=== PATIENT | female | born 1945 | race Caucasian/White ===

== ENCOUNTER 2018-10-29 18:22 | Emergency (ER) | payer MEDICARE ==
[2018-10-29 18:42] VITALS: BP 162/86
--- NOTE | 2018-10-29 19:02 | UC ---
Bite Injury/Animal HPI - HPI Summary HPI Summary: 73-year-old woman comes in with a chief complaint of tick bite on the anterior chest just over the left clavicle. She has to take and pulled on it and got most of it had probably still in there. She did that today. Probably get the tick in there yesterday. No fevers no chills. The area around tick bite is slightly erythematous. Feels well otherwise. - History of Current Complaint Chief Complaint: UCSkin Stated Complaint: TICK BITE Time Seen by Provider: 10/29/18 18:35 Pain Intensity: 2 - Allergies/Home Medications Allergies/Adverse Reactions: Allergies Allergy/AdvReac Type Severity Reaction Status Date / Time diltiazem Allergy Nausea And Verified 10/29/18 18:43 Vomiting Penicillins Allergy Hives Verified 10/29/18 18:43 CT SCAN DYE Allergy Hives Uncoded 01/05/16 08:29 Home Medications: Home Medications Apixaban* [Eliquis*] 5 mg PO DAILY 10/29/18 [History Confirmed 10/29/18] Calcium Carbonate [Calcium] 750 mg PO DAILY 10/29/18 [History Confirmed 10/29/18 ] Dofetilide CAP* [Tikosyn CAP*] 500 mcg PO DAILY 10/29/18 [History Confirmed 04/10] Lisinopril 40 mg PO QAM 10/29/18 [History Confirmed 10/29/18] PMH/Surg Hx/FS Hx/Imm Hx Previously Healthy: Yes Endocrine History: Hypothyroidism Cardiovascular History: Hypertension, Atrial Fibrillation - Surgical History Surgical History: Yes Surgery Procedure, Year, and Place: PACEMAKER PLACEMENT- [facility]. 3 CARDIAC ABLATIONS- [facility]. UPPER AND LOWER ENDOSCOPIES-[facility] - Family History Known Family History: Positive: Non-Contributory - Social History Alcohol Use: Occasionally Substance Use Type: None Smoking Status (MU): Never Smoked Tobacco Review of Systems All Other Systems Reviewed And Are Negative: Yes Constitutional: Positive: Negative Skin: Positive: Other - SEE HPI Eyes: Positive: Negative ENT: Positive: Negative Respiratory: Positive: Negative Cardiovascular: Positive: Negative Gastrointestinal: Positive: Negative Motor: Positive: Negative Neurovascular: Positive: Negative Musculoskeletal: Positive: Negative Neurological: Positive: Negative Psychological: Positive: Negative Is Patient Immunocompromised?: No Physical Exam Triage Information Reviewed: Yes Appearance: Well-Appearing, No Pain Distress, Well-Nourished Vital Signs: Initial Vital Signs Temp 98.4 F 10/29/18 18:36 Pulse 100 10/29/18 18:36 Resp 16 10/29/18 18:36 BP 162/86 10/29/18 18:36 Pulse Ox 97 10/29/18 18:36 Vital Signs Reviewed: Yes Eye Exam: Normal Eyes: Positive: Conjunctiva Clear Neck exam: Normal Neck: Positive: Supple Respiratory: Positive: No respiratory distress Musculoskeletal Exam: Normal Musculoskeletal: Positive: Strength Intact, ROM Intact Neurological: Positive: Alert Psychological: Positive: Age Appropriate Behavior Skin: Positive: Other - LEFT ANTERIOR CHEST OVER THE CLAVICE, 1-2MM DARK FB IMBEDDED IN SKIN. MILD BLANCHING ERYTHEMA 1CM AROUNG THE FB. NO BULLS EYE RASH. Bite Injury Course/Dx - Course Course Of Treatment: DISCUSSED TO GET RECHECKED FOR MODULAR SET CREW MEMBER ABX IF CELLULITIS OR BULLS EYE RASH APPEARS OR IF FEEL ILL. - Differential Dx/Diagnosis Provider Diagnosis: Tick bite of chest wall Discharge - Sign-Out/Discharge Documenting (check all that apply): Patient Departure All imaging exams completed and their final reports reviewed: No Studies - Discharge Plan Condition: Stable Disposition: HOME Prescriptions: DOXYcycline CAP(*) [DOXYcycline 100MG CAP(*)] 200 mg PO ONCE #2 cap Patient Education Materials: Tick Bite (ED) Referrals: Amber Vernon MD [Primary Care Provider] - Additional Instructions: FOLLOW UP WITH YOUR DOCTOR IF NOT COMPLETELY IMPROVED. GET REEVALUATED SOONER FOR ANY WORSENING OF YOUR CONDITION; RASH, FEVER, YOU FEEL ILL OR ANY QUESTIONS OR CONCERNS. - Billing Disposition and Condition Condition: STABLE Disposition: Home
== END 2018-10-29 19:05 | disposition home or self-care (01) ==
LOC: UCEAST 18:22
DX: T63.481A Toxic effect of venom of other arthropod, accidental (unintentional), initial encounter (principal); Y92.9 Unspecified place or not applicable; I10 Essential (primary) hypertension; I48.91 Unspecified atrial fibrillation
CPT/HCPCS: 99212; G0463

== ENCOUNTER 2019-01-05 09:03 | Observation (INO) | payer MEDICARE ==
[2019-01-05] MEDS ORDERED: NS 0.9% 1000 ML** 1,000 ML IV ONE (09:13)
[2019-01-05 09:43] LABS: ABS Basophils 0.1 10^3/ul (0-0.2); ABS Eosinophils 0.1 10^3/ul (0-0.6); ABS Lymphocytes 1.5 10^3/ul (1.0-4.8); ABS Monocytes 0.7 10^3/ul (0-0.8); ABS Neutrophils 5.7 10^3/ul (1.5-7.7); Eosinophil % 1.6 %; Hematocrit 36 % (35-47); Hemoglobin 11.6 g/dL (12.0-16.0); Lymphocyte % 18.2 %; Mean Corpuscular HGB Conc 32 g/dL (31-36); Mean Corpuscular Hemoglobin 27 pg (27-31); Mean Corpuscular Volume 84 fL (80-97); Mean Platelet Volume 7.5 fL (7.4-10.4); Platelet Count 293 10^3/uL (150-450); Red Blood Count 4.32 10^6 /uL (3.70-4.87); Red Cell Distribution Width 14 % (10-15); White Blood Count 8.1 10^3/uL (3.5-10.8)
[2019-01-05 09:51] LABS: INR 1.91 (0.82-1.09)
[2019-01-05 10:01] LABS: Albumin 4.3 g/dL (3.2-5.2); Albumin/Globulin Ratio 1.3 (1-3); BUN/Creatinine Ratio 21.4 (8-20); C Reactive Protein 2.48 mg/L (<8.01); Calcium 9.8 mg/dL (8.6-10.3); EGFR Non-African American 66.1 (>60); Globulin 3.2 g/dL (2-4); Potassium 3.9 mmol/L (3.5-5.0); Total Bilirubin 0.7 mg/dL (0.2-1.0); Total Protein 7.5 g/dL (6.4-8.9)
[2019-01-05] MEDS: Esmolol* 10 MG/ML 10 ML (100 mg) IV SCH ×2 (11:20→11:33)
[2019-01-05] MEDS ORDERED: Metoprolol Tartrate IV* 1 MG/ML 5 ML VIAL IV ONE ×3 (12:29→16:00)
[2019-01-05 12:54] LABS: Magnesium 1.8 mg/dL (1.9-2.7)
[2019-01-05 13:10] LABS: TSH (Thyroid Stimulating Horm) 5.41 mcIU/mL (0.34-5.60)
--- NOTE | 2019-01-05 13:18 | ED ---
HPI Cardiac - HPI Summary HPI Summary: She was 73-year-old female with history of A. fib and hypertension. Currently is a patient of Dr. Tucker at [place], [place]. Patient states she has been SOB x 2 weeks. Denies fevers, sweats or chills. Denies abd pain, n/v/c/d. Denies edema or other swelling. No hx of CHF. No hx of asthma/COPD. patient states she has been in A. fib chronically for several months, despite medications and 5 open lesions. She states "I refused to have any more of ablations." States she has an appt with Dr. Tucker on Sunday (in 2 days) to have her pacemaker "take over." She states she typically runs between 90-110 HR , but over the past 2 weeks, her HR rate has been increased (<130's) consistently getting worse. With this, her SOB has worsened. Not worse or better at night or with ambulation. Denies cough. She states she has N/V with diltiazem and verapamil and is refusing to try these again as she had severe N/ V. She also states she has had side effects with digoxin and Tikosyn. Currently taking Toprol 50mg, amlodipine and lisinopril. - History of Current Complaint Chief Complaint: EDShortnessOfBreath Stated Complaint: I CANT BREATH PER PT Time Seen by Provider: 01/05/19 09:13 Hx Obtained From: Patient Onset/Duration: Started Hours Ago Timing: Constant Initial Severity: Moderate Current Severity: Moderate Pain Intensity: 2 Pain Scale Used: 0-10 Numeric Chest Pain Radiates: No Aggravating Factor(s): Nothing Alleviating Factor(s): Nothing Associated Signs and Symptoms: Positive: Negative. Negative: Chest Pain, Vision Changes, Anxiety, Recent Stress, Headaches, Lightheadedness, Palpitations , Productive Cough, Nonproductive Cough, Calf Pain/Swelling - Risk Factors Cardiac Risk Factors: Hypertension Atrial Fibrillation Risk Factors: Hypertension, Coronary Artery Disease TAD Risk Factors: Negative - Allergy/Home Medications Allergies/Adverse Reactions: Allergies Allergy/AdvReac Type Severity Reaction Status Date / Time diltiazem Allergy Nausea And Verified 01/05/19 09:39 Vomiting Iodinated Contrast- Oral and Allergy Hives Verified 01/05/19 16:10 IV Dye Penicillins Allergy Hives Verified 01/05/19 09:39 PMH/Surg Hx/FS Hx/Imm Hx Previously Healthy: Yes Endocrine/Hematology History: Reports: Hx Thyroid Disease - HYPOTHYROID Cardiovascular History: Reports: Hx Hypertension - ON MEDICATION FOR, Hx Pacemaker/ICD, Other Cardiovascular Problems/Disorders - ATRIAL FIBRILLATION GI History: Reports: Hx Gastroesophageal Reflux Disease, Hx Ulcer - HISTORY OF Musculoskeletal History: Reports: Hx Arthritis - LEFT HIP AND FINGERS Sensory History: Reports: Hx Cataracts - BILATERAL, Hx Contacts or Glasses - GLASSES Denies: Hx Hearing Aid Opthamlomology History: Reports: Hx Cataracts - BILATERAL, Hx Contacts or Glasses - GLASSES - Surgical History Surgery Procedure, Year, and Place: PACEMAKER PLACEMENT- [facility]. 3 CARDIAC ABLATIONS- [facility]. UPPER AND LOWER ENDOSCOPIES-[facility] Hx Anesthesia Reactions: No Infectious Disease History: No Infectious Disease History: Denies: Traveled Outside the [place] in Last 30 Days - Family History Known Family History: Positive: Non-Contributory - Social History Occupation: Unemployed Lives: With Family Alcohol Use: None Hx Substance Use: No Substance Use Type: Reports: None Smoking Status (MU): Never Smoked Tobacco Review of Systems Constitutional: Negative Negative: Fever, Chills, Fatigue, Skin Diaphoresis Negative: Palpitations, Chest Pain Positive: Shortness Of Breath. Negative: Cough Negative: Abdominal Pain, Vomiting, Diarrhea, Nausea Genitourinary: Negative Positive: no symptoms reported, see HPI Negative: Arthralgia, Myalgia All Other Systems Reviewed And Are Negative: Yes Physical Exam Triage Information Reviewed: Yes Vital Signs On Initial Exam: Initial Vitals Temp Pulse Resp BP Pulse Ox 97.6 F 137 20 136/91 95 01/05/19 09:06 01/05/19 09:06 01/05/19 09:06 01/05/19 09:06 01/05/19 09:06 Vital Signs Reviewed: Yes Appearance: Positive: Well-Appearing, Well-Nourished Skin: Positive: Warm, Skin Color Reflects Adequate Perfusion Head/Face: Positive: Normal Head/Face Inspection Eyes: Positive: EOMI, Conjunctiva Clear Neck: Positive: Supple, No Lymphadenopathy Respiratory/Lung Sounds: Positive: Clear to Auscultation, Breath Sounds Present Cardiovascular: Positive: IRR - rapid RVR with rate of >130's Musculoskeletal: Positive: Normal, Strength/ROM Intact Neurological: Positive: Sensory/Motor Intact, Alert, Oriented to Person Place, Time, Speech Normal Psychiatric: Positive: Affect/Mood Appropriate AVPU Assessment: Alert - [place] Coma Scale Best Eye Response: 4 - Spontaneous Best Motor Response: 6 - Obeys Commands Best Verbal Response: 5 - Oriented Coma Scale Total: 15 Diagnostics - Vital Signs Vital Signs Temp Pulse Resp BP Pulse Ox 01/05/19 12:08 123 26 119/79 91 01/05/19 12:00 126 20 92 01/05/19 11:57 127 22 134/88 91 01/05/19 11:47 123 15 124/100 97 01/05/19 11:36 135 18 142/100 88 01/05/19 11:34 128 29 130/94 93 01/05/19 11:32 132 25 135/100 93 01/05/19 11:28 125 27 108/85 93 01/05/19 11:27 128 21 125/100 94 01/05/19 11:24 119 28 132/98 92 01/05/19 11:23 133 24 132/97 92 01/05/19 11:21 135 27 137/104 93 01/05/19 11:17 128 15 138/93 93 01/05/19 11:00 129 26 92 01/05/19 10:47 125 25 122/89 91 01/05/19 10:17 127 26 116/89 95 01/05/19 10:00 27 01/05/19 09:47 122 28 123/97 91 01/05/19 09:30 142 146/118 94 01/05/19 09:17 128 134/96 93 01/05/19 09:16 142 96 01/05/19 09:06 97.6 F 137 20 136/91 95 - Laboratory Lab Results: Lab Results 01/05/19 01/05/19 01/05/19 Range/Units 09:20 09:24 09:24 WBC 8.1 (3.5-10.8) 10^3/uL RBC 4.32 (3.70-4.87) 10^6 /uL Hgb 11.6 L (12.0-16.0) g/dL Hct 36 (35-47) % MCV 84 (80-97) fL MCH 27 (27-31) pg MCHC 32 (31-36) g/dL RDW 14 (10-15) % Plt Count 293 (150-450) 10^3/uL MPV 7.5 (7.4-10.4) fL Neut % (Auto) 70.6 % Lymph % (Auto) 18.2 % [place] % (Auto) 8.4 % Eos % (Auto) 1.6 % Baso % (Auto) 1.2 % Absolute Neuts (auto) 5.7 (1.5-7.7) 10^3/ul Absolute Lymphs (auto) 1.5 (1.0-4.8) 10^3/ul Absolute Monos (auto) 0.7 (0-0.8) 10^3/ul Absolute Eos (auto) 0.1 (0-0.6) 10^3/ul Absolute Basos (auto) 0.1 (0-0.2) 10^3/ul Absolute Nucleated RBC 0.0 10^3/ul Nucleated RBC % 0.0 INR (Anticoag Therapy) 1.91 H (0.82-1.09) D-Dimer, Quantitative 687 H (Less Than 230) ng/mL Sodium (135-145) mmol/L Potassium (3.5-5.0) mmol/L Chloride (101-111) mmol/L Carbon Dioxide (22-32) mmol/L Anion Gap (2-11) mmol/L BUN (6-24) mg/dL Creatinine (0.51-0.95) mg/dL Est GFR ( Amer) (>60) Est GFR (Non-Af Amer) (>60) BUN/Creatinine Ratio (8-20) Glucose (70-100) mg/dL Lactic Acid (0.5-2.0) mmol/L Calcium (8.6-10.3) mg/dL Magnesium (1.9-2.7) mg/dL Total Bilirubin (0.2-1.0) mg/dL AST (13-39) U/L ALT (7-52) U/L Alkaline Phosphatase (34-104) U/L Total Creatine Kinase (10-223) U/L Troponin I (<0.04) ng/mL C-Reactive Protein (<8.01) mg/L B-Natriuretic Peptide 250 H (<=100) pg/mL Total Protein (6.4-8.9) g/dL Albumin (3.2-5.2) g/dL Globulin (2-4) g/dL Albumin/Globulin Ratio (1-3) TSH (0.34-5.60) mcIU/mL 01/05/19 01/05/19 Range/Units 09:24 09:24 WBC (3.5-10.8) 10^3/uL RBC (3.70-4.87) 10^6 /uL Hgb (12.0-16.0) g/dL Hct (35-47) % MCV (80-97) fL MCH (27-31) pg MCHC (31-36) g/dL RDW (10-15) % Plt Count (150-450) 10^3/uL MPV (7.4-10.4) fL Neut % (Auto) % Lymph % (Auto) % [place] % (Auto) % Eos % (Auto) % Baso % (Auto) % Absolute Neuts (auto) (1.5-7.7) 10^3/ul Absolute Lymphs (auto) (1.0-4.8) 10^3/ul Absolute Monos (auto) (0-0.8) 10^3/ul Absolute Eos (auto) (0-0.6) 10^3/ul Absolute Basos (auto) (0-0.2) 10^3/ul Absolute Nucleated RBC 10^3/ul Nucleated RBC % INR (Anticoag Therapy) (0.82-1.09) D-Dimer, Quantitative (Less Than 230) ng/mL Sodium 137 (135-145) mmol/L Potassium 3.9 (3.5-5.0) mmol/L Chloride 103 (101-111) mmol/L Carbon Dioxide 24 (22-32) mmol/L Anion Gap 10 (2-11) mmol/L BUN 18 (6-24) mg/dL Creatinine 0.84 (0.51-0.95) mg/dL Est GFR ( Amer) 80.0 (>60) Est GFR (Non-Af Amer) 66.1 (>60) BUN/Creatinine Ratio 21.4 H (8-20) Glucose 102 H (70-100) mg/dL Lactic Acid 1.7 (0.5-2.0) mmol/L Calcium 9.8 (8.6-10.3) mg/dL Magnesium 1.8 L (1.9-2.7) mg/dL Total Bilirubin 0.70 (0.2-1.0) mg/dL AST 23 (13-39) U/L ALT 20 (7-52) U/L Alkaline Phosphatase 58 (34-104) U/L Total Creatine Kinase 41 (10-223) U/L Troponin I 0.00 (<0.04) ng/mL C-Reactive Protein 2.48 (<8.01) mg/L B-Natriuretic Peptide (<=100) pg/mL Total Protein 7.5 (6.4-8.9) g/dL Albumin 4.3 (3.2-5.2) g/dL Globulin 3.2 (2-4) g/dL Albumin/Globulin Ratio 1.3 (1-3) TSH 5.41 (0.34-5.60) mcIU/mL Result Diagrams: 01/05/19 09:24 01/05/19 09:24 Lab Statement: Any lab studies that have been ordered have been reviewed, and results considered in the medical decision making process. Disposition - Course Course Of Treatment: During this course of treatment, the patient is evaluated for shortness of breath which is been worsening over the past 2 weeks. She denies any cough or cough production. Denies any fevers, sweats, chills. Denies any abdominal pain, nausea, vomiting, diarrhea. She denies any edema to the lower extremities. She states she has had normal blood pressures, however has been in A. fib with rapid response of over 130s. She states this is been worsening over the past several days as well as her shortness of breath has been worsening. She states she is currently on Toprol 50 mg and is scheduled to have her pacemaker take over on Sunday, 2 days from today, at [facility]. History of 5 ablations. Patient has a normal white count and an INR of 1.91. D-dimer is 687, however an age adjusted d-dimer is 750 for her age, which shows VTE unlikely d/t cut-off. Likely SOB related to rapid response. However, CXR shows atelectasis vs. PNA. She is already on BB. She is allergic to verapamil and Cardizem. Discussed with Dr. Chavez who suggested Brevibloc 15mg x 2 IV push. This did not change rate. Discussed with Dr. Trent. Suggested other medications (ex. Digoxin) vs. admit for PNA which would likely be the cause of elevated HR and this should control HR. Discussed admission with Dr. Blackman. Lopressor 5mg x 2 given which also did not control the rate. Patient remains symptomatically SOB, however O2 remains stable. Patient admits at this time she has had a mild cough. non-productive. Wishes not to stay, but is willing. - Differential Dx - Cardiopulmonary Differential Diagnoses - Cardiopulmonary: Other - rapid RVR, a fib, SOB, PNA, atelectasis - Diagnoses Provider Diagnoses: Atrial fibrillation with RVR - Physician Notifications Discussed Care Of Patient With: Topher Blackman Instructed by Provider To: Admit As Inpatient - Critical Care Time Critical Care Time: 30-74 min Discharge - Sign-Out/Discharge Documenting (check all that apply): Patient Departure Patient Received Moderate/Deep Sedation with Procedure: No - Discharge Plan Condition: Fair Disposition: ADMITTED TO [facility] - Billing Disposition and Condition Condition: FAIR Disposition: Admitted to [facility]
[2019-01-05] MEDS ORDERED: Magnesium Sulfate 2 GM IV* 2 GM/50 ML BAG IVPB ONE (13:54)
[2019-01-05] MEDS ORDERED: Metoprolol Succinate XL TAB* 100 MG PO ONE (16:00)
[2019-01-05] MEDS ORDERED: Metoprolol Succinate XL TAB* 50 MG PO ONE (17:00)
[2019-01-05] MEDS ORDERED: Digoxin IV* 0.5 MG/2 ML AMP (0.25 MG/ML) IV SLOW PU ONE (17:17)
[2019-01-05] MEDS ORDERED: Acetaminophen TAB* 325 MG PO PRN (17:23)
[2019-01-05 19:17] LABS: Urine Appearance Clear; Urine Bilirubin Negative (Negative); Urine Blood Negative (Negative); Urine Color Yellow; Urine Glucose Negative (Negative); Urine Ketones Negative (Negative); Urine Nitrite Negative (Negative); Urine Protein Negative (Negative); Urine Specific Gravity 1.009 (1.010-1.030); Urine Urobilinogen Negative (Negative)
--- NOTE | 2019-01-05 20:31 | HP ---
CC: Dr. Vernon; * HISTORY AND PHYSICAL: DATE OF ADMISSION: 01/05/19 PROVIDER: Anu Kim NP PRIMARY CARE PROVIDER: Amber Vernon MD ATTENDING PHYSICIAN WHILE IN THE HOSPITAL: Topher Blackman MD * (dictated by Anu Kim NP) CHIEF COMPLAINT: 1. Tachycardia. 2. Shortness of breath. HISTORY OF PRESENT ILLNESS: Ms. Hackett is a 73-year-old female with a past medical history significant for atrial fibrillation, hypertension, diabetes, hypothyroid, GERD, anxiety, who presented to the emergency room with complaints of a cough x2 weeks, though the patient reports this is suspected related to her allergies and increased heart rate. The patient does report that she has chronic atrial fibrillation that she has been in atrial fibrillation for approximately 1 year and they have had difficulty controlling her heart rate. The patient reports approximately 1.5 months ago, her physician stopped her digoxin and Tikosyn as it was not controlling her heart rate. After that, the patient reports that her heart rate started to increase and she reports for approximately the past week, her heart rate has been anywhere from one teens to 126. She does report that she has had increased fatigue and increased shortness of breath x1 week. The patient reports that normally with her atrial fibrillation, her heart rate is normally in the 90s, but will range from 70s to 100s. Due to her increased shortness of breath, the patient reported to the emergency department for further evaluation. The patient reports that in March 2018, she had a cardiac catheterization at that time that was reported to have no blockages. She also reports that she has an appointment with her computer forensic specialist on Sunday and at that time she is going to be evaluated due to her uncontrolled atrial fibrillation, have her pacemaker adjusted to control her heart rate. While in the emergency room, the patient had routine lab work drawn. She was given Lopressor 5 mg IV x3. She was given Lopressor 100 mg p.o. She was given 15 mg esmolol x2 for a total dose of 30 mg with no significant change in her heart rate. Due to her atrial fibrillation with RVR and complaints of shortness of breath, we were asked to see and evaluate her for admission. The patient denies any fevers, chills, unintended weight loss. Denies any chest pain or edema. Denies any cough, hemoptysis. She does report increased shortness of breath x1 week. She denies any nausea, vomiting, diarrhea, abdominal pain, hematuria, dysuria. She denies any focal weakness or sensory loss. Denies any visual complaints, dysphagia, arthralgias, myalgias, rashes, lesions, or open sores. She denies any psychosis or anxiety. Due to her increased heart rate, atrial fibrillation, and shortness of breath, we were asked to see and evaluate her for admission. PAST MEDICAL HISTORY: Significant for: 1. Atrial fibrillation. 2. Hypertension. 3. Diabetes. 4. Hypothyroid. 5. GERD. 6. Anxiety. 7. Hypercholesterolemia. 8. Pacemaker placement. PAST SURGICAL HISTORY: 1. Hysterectomy. 2. Pacemaker implantation in 2009. 3. Polyps removed. 4. Radiofrequency ablation in 2008. 5. Pulmonary vein ablation in 2008. 6. Left cataract with lens implant. FAMILY HISTORY: Mother and father were both with a history of hypertension. Mother from a cerebral aneurysm. Father from an [place]. Brother from an [place] at age 55. No reported history of diabetes or cancer within the family. SOCIAL HISTORY: The patient denies any tobacco use. She does report very rare alcohol use. Denies any illicit drug use. She is single. Surrogate decision maker in the event she is unable to make her own decisions is her friend, Masoud Suarez, her phone number is [phone]. She is a full code. REVIEW OF SYSTEMS: An 11-point review of systems was completed. All pertinent positives were mentioned in the HPI. PHYSICAL EXAMINATION GENERAL: At this time, Ms. Hackett is a 73-year-old female, she is alert and oriented, resting on a stretcher in the emergency room, she does not appear to be in any acute distress. VITAL SIGNS: Blood pressure 141/89, heart rate is 118 to 130s, respirations are 19, O2 saturation 95%, and temperature is 98.0. HEENT: Head is atraumatic, normocephalic. Eyes: EOMs are intact. Sclerae anicteric and not pale. Oral mucosa appeared to be moist. NECK: Supple. LUNGS: Diminished bilaterally. There are no wheezes, rales, or rhonchi. CARDIAC: S1, S2. Irregular rate and rhythm. She is tachycardic. ABDOMEN: Soft and nontender. Bowel sounds are present x4. EXTREMITIES: She is able to move all 4 extremities. There is no clubbing or cyanosis. She has no peripheral edema. Pedal pulses are +2 bilaterally. NEUROLOGIC: She is awake, alert, oriented x3. Speech is clear. Thought is intact. There are no gross focal deficits. SKIN: Intact. LABORATORY DATA AND DIAGNOSTIC STUDIES: WBCs are 8.1, RBCs 4.32, hemoglobin 11.6, hematocrit is 36, platelet count is 293. INR is 1.91. D-dimer was 687. Sodium 137, potassium 3.9, chloride 103, carbon dioxide is 24, anion gap is 10, BUN was 18, creatinine 0.84, glucose was 102. Lactic acid was 1.7. Calcium 9.8. Magnesium 1.8. Troponin was 0.00. C-reactive protein was 2.48. BNP was 250. TSH was 5.41. She had a chest x-ray, radiologist's impression: Left basilar atelectasis versus consolidation, small right pleural effusion, hiatal hernia. She had an electrocardiogram, which showed atrial fibrillation at a rate of 129. ASSESSMENT AND PLAN: Ms. Hackett is a 73-year-old female with a past medical history significant for atrial fibrillation with pacemaker placement, hypertension, diabetes, hypothyroid, and gastroesophageal reflux disease, who presented to the emergency room with complaints of shortness of breath and increased heart rate, worsening tachycardia x1 week. She will be admitted under observation for: 1. Atrial fibrillation with rapid ventricular rate. The patient does have a pacemaker and has a scheduled appointment with her computer forensic specialist on Sunday. She reports at that time it is going to be discussed to have her pacemaker take over due to the inability to control her heart rate. The patient also reports that approximately 1.5 months ago, her digoxin and Tikosyn were discontinued as they were not effective in controlling her heart rate. She does report that since the discontinuation of those medications, her heart rate has steadily increased. She was given metoprolol a total of 15 mg IV in the emergency room as well as esmolol total of 30 mg. She was also given 100 mg of p.o. metoprolol. I will repeat a second dose of 100 mg at 10 p.m. tonight. I will start her on digoxin. I will give her loading dose 0.50 mg x1 and then repeat 0.25 mg in 6 hours based on heart rate. Will get digoxin level in the AM. I will continue her on her Eliquis 5 mg p.o. b.i.d. 2. Hypothyroid. We will continue her on levothyroxine 88 mcg p.o. daily. 3. Diabetes. I will place her on lispro sliding scale with fingersticks a.c. 4. Hypertension. She will continue on her lisinopril 40 and amlodipine 5. 5. Gastroesophageal reflux disease. She will continue on omeprazole 20 mg p.o. daily. 6. Anxiety. She can have Xanax 0.25 mg p.o. q.6 hours as needed for anxiety. 7. Elevated Ddimer. Patient is currently taking eliquis for her afib, She does have a potential to have a pulmonary embolism, she has an allergy to IVP dye so she is unable to have a CTA. Could consider VQ scan in the AM to rule PE. I will continue her on Eliquis at this time. 8. Code status. She is a full code. 9. DVT prophylaxis. I will continue her on Eliquis. 10. FEN. She can have a heart healthy, no caffeine diet. Disposition. She will be placed under observation on . TIME SPENT: Time spent on this admission was approximately 60 minutes, greater than half that time was spent at the bedside reviewing events leading thus far to her hospitalization, performing physical exam, and reviewing my plan of care. I have discussed this with my attending Dr. Topher Blackman, he is in agreement with my plan. ANU KIM, NETWORK SYSTEMS CONSULTANT [id number]/CPS #: [id number] [place]
[2019-01-05] MEDS: Apixaban* 5 MG TAB PO SCH (21:24)
[2019-01-05] MEDS ORDERED: Metoprolol Tartrate TAB* 100 MG TAB PO ONE (22:00)
[2019-01-06 05:53] LABS: ABS Basophils 0.1 10^3/ul (0-0.2); ABS Eosinophils 0.2 10^3/ul (0-0.6); ABS Lymphocytes 1.6 10^3/ul (1.0-4.8); ABS Monocytes 0.5 10^3/ul (0-0.8); ABS Neutrophils 4.2 10^3/ul (1.5-7.7); Eosinophil % 2.7 %; Hematocrit 35 % (35-47); Hemoglobin 11.2 g/dL (12.0-16.0); Lymphocyte % 24.8 %; Mean Corpuscular HGB Conc 33 g/dL (31-36); Mean Corpuscular Hemoglobin 27 pg (27-31); Mean Corpuscular Volume 83 fL (80-97); Mean Platelet Volume 7.5 fL (7.4-10.4); Platelet Count 245 10^3/uL (150-450); Red Blood Count 4.16 10^6 /uL (3.70-4.87); Red Cell Distribution Width 14 % (10-15); White Blood Count 6.6 10^3/uL (3.5-10.8)
[2019-01-06] MEDS ORDERED: Levothyroxine TAB* 88 MCG TAB PO SCH (06:00)
[2019-01-06 06:15] LABS: Digoxin 1.1 ng/ml (0.8-2.0)
[2019-01-06 06:19] LABS: BUN/Creatinine Ratio 18.8 (8-20); EGFR African American 100.4 (>60); EGFR Non-African American 82.9 (>60)
[2019-01-06] MEDS: Apixaban* 5 MG TAB PO SCH (08:57)
[2019-01-06] MEDS ORDERED: Prenatal Vitamin TAB PO SCH (09:00)
[2019-01-06] MEDS ORDERED: amLODIPine TAB* 5 MG PO SCH (09:00)
[2019-01-06] MEDS ORDERED: Metoprolol Tartrate TAB* 100 MG TAB PO SCH (09:00)
[2019-01-06] MEDS ORDERED: Pantoprazole TAB * 40 MG TAB PO SCH (09:00)
[2019-01-06] MEDS ORDERED: Lisinopril TAB* 10 MG PO SCH (09:00)
[2019-01-06] MEDS ORDERED: Potassium Chlor TAB* 10 MEQ TAB.ER PO SCH (12:00)
--- NOTE | 2019-01-06 12:29 | PN ---
Subjective Date of Service: 01/06/19 Interval History: . Patient reports she is feeling much much better and feels that she could go home. She agrees to VQ scan due to hypoxia. Denies hx of PE in the past. Reports she takes her Eliquis regularly. She denies any sob, cough currently but has been experiencing a cough and sob for a week. no fevers or chills. Denies orthopnea or LE edema. No CP. She has an appointment with her Practice Specialist in [place] tomorrow. Objective Active Medications: Acetaminophen (Tylenol Tab*) 650 mg PO Q4H PRN PRN Reason: FEVER/PAIN Amlodipine Besylate ([facility]asc Tab*) [facility] Last Admin: 01/06/19 08:57 Dose: 5 mg Apixaban (Eliquis*) 5 mg PO BID [facility] Last Admin: 01/06/19 08:57 Dose: 5 mg Levothyroxine Sodium (Synthroid Tab*) 88 mcg PO 0600 [facility] Lisinopril (Prinivil Tab*) [facility] Last Admin: 01/06/19 08:57 Dose: 40 mg Metoprolol Tartrate (Lopressor Tab*) 100 mg PO Q12HR [facility] Last Admin: 01/06/19 08:57 Dose: 100 mg Multivitamins ( Vitamin Tab*) 1 tab PO QAM [facility] Last Admin: 01/06/19 08:57 Dose: 1 tab Pantoprazole Sodium (Protonix Tab*) [facility] Last Admin: 01/06/19 08:57 Dose: 40 mg Potassium Chloride (Klor Con Er Tab*) 10 meq PO 1200 [facility] Vital Signs - 8 hr 01/06/19 01/06/19 09:11 11:43 Temperature 99.1 F 98.9 F Pulse Rate 121 87 Respiratory 18 18 Rate Blood Pressure 134/87 128/79 (mmHg) O2 Sat by Pulse 96 94 Oximetry Oxygen Devices in Use Now: Nasal Cannula Appearance: well developed 73 yo female A+O x3 in NAD sitting up on the side of the bed Eyes: No Scleral Icterus, PERRLA Ears/Nose/Mouth/Throat: Mucous Membranes Moist Neck: NL Appearance and Movements; NL JVP Respiratory: Symmetrical Chest Expansion and Respiratory Effort, Clear to Auscultation Cardiovascular: NL Sounds; No Murmurs; No JVD, No Edema, - - irregular Abdominal: NL Sounds; No Tenderness; No Distention Extremities: No Edema, No Clubbing, Cyanosis Skin: No Rash or Ulcers, No Nodules or Sclerosis Neurological: Alert and Oriented x 3, NL Sensation, NL Gait, NL Muscle Strength and Tone Lines/Tubes/Other Access: Clean, Dry and Intact Peripheral IV Nutrition: Taking PO's Result Diagrams: 01/06/19 05:14 01/06/19 05:14 Additional Lab and Data: Lab Results 01/05/19 01/05/19 01/05/19 Range/Units 09:20 09:24 09:24 WBC 8.1 (3.5-10.8) 10^3/uL RBC 4.32 (3.70-4.87) 10^6 /uL Hgb 11.6 L (12.0-16.0) g/dL Hct 36 (35-47) % MCV 84 (80-97) fL MCH 27 (27-31) pg MCHC 32 (31-36) g/dL RDW 14 (10-15) % Plt Count 293 (150-450) 10^3/uL MPV 7.5 (7.4-10.4) fL Neut % (Auto) 70.6 % Lymph % (Auto) 18.2 % Kinney % (Auto) 8.4 % Eos % (Auto) 1.6 % Baso % (Auto) 1.2 % Absolute Neuts (auto) 5.7 (1.5-7.7) 10^3/ul Absolute Lymphs (auto) 1.5 (1.0-4.8) 10^3/ul Absolute Monos (auto) 0.7 (0-0.8) 10^3/ul Absolute Eos (auto) 0.1 (0-0.6) 10^3/ul Absolute Basos (auto) 0.1 (0-0.2) 10^3/ul Absolute Nucleated RBC 0.0 10^3/ul Nucleated RBC % 0.0 INR (Anticoag Therapy) 1.91 H (0.82-1.09) D-Dimer, Quantitative 687 H (Less Than 230) ng/mL Sodium (135-145) mmol/L Potassium (3.5-5.0) mmol/L Chloride (101-111) mmol/L Carbon Dioxide (22-32) mmol/L Anion Gap (2-11) mmol/L BUN (6-24) mg/dL Creatinine (0.51-0.95) mg/dL Est GFR ( Amer) (>60) Est GFR (Non-Af Amer) (>60) BUN/Creatinine Ratio (8-20) Glucose (70-100) mg/dL Lactic Acid (0.5-2.0) mmol/L Calcium (8.6-10.3) mg/dL Magnesium (1.9-2.7) mg/dL Total Bilirubin (0.2-1.0) mg/dL AST (13-39) U/L ALT (7-52) U/L Alkaline Phosphatase (34-104) U/L Total Creatine Kinase (10-223) U/L Troponin I (<0.04) ng/mL C-Reactive Protein (<8.01) mg/L B-Natriuretic Peptide 250 H (<=100) pg/mL Total Protein (6.4-8.9) g/dL Albumin (3.2-5.2) g/dL Globulin (2-4) g/dL Albumin/Globulin Ratio (1-3) TSH (0.34-5.60) mcIU/mL 01/05/19 01/05/19 Range/Units 09:24 09:24 WBC (3.5-10.8) 10^3/uL RBC (3.70-4.87) 10^6 /uL Hgb (12.0-16.0) g/dL Hct (35-47) % MCV (80-97) fL MCH (27-31) pg MCHC (31-36) g/dL RDW (10-15) % Plt Count (150-450) 10^3/uL MPV (7.4-10.4) fL Neut % (Auto) % Lymph % (Auto) % Kinney % (Auto) % Eos % (Auto) % Baso % (Auto) % Absolute Neuts (auto) (1.5-7.7) 10^3/ul Absolute Lymphs (auto) (1.0-4.8) 10^3/ul Absolute Monos (auto) (0-0.8) 10^3/ul Absolute Eos (auto) (0-0.6) 10^3/ul Absolute Basos (auto) (0-0.2) 10^3/ul Absolute Nucleated RBC 10^3/ul Nucleated RBC % INR (Anticoag Therapy) (0.82-1.09) D-Dimer, Quantitative (Less Than 230) ng/mL Sodium 137 (135-145) mmol/L Potassium 3.9 (3.5-5.0) mmol/L Chloride 103 (101-111) mmol/L Carbon Dioxide 24 (22-32) mmol/L Anion Gap 10 (2-11) mmol/L BUN 18 (6-24) mg/dL Creatinine 0.84 (0.51-0.95) mg/dL Est GFR ( Amer) 80.0 (>60) Est GFR (Non-Af Amer) 66.1 (>60) BUN/Creatinine Ratio 21.4 H (8-20) Glucose 102 H (70-100) mg/dL Lactic Acid 1.7 (0.5-2.0) mmol/L Calcium 9.8 (8.6-10.3) mg/dL Magnesium 1.8 L (1.9-2.7) mg/dL Total Bilirubin 0.70 (0.2-1.0) mg/dL AST 23 (13-39) U/L ALT 20 (7-52) U/L Alkaline Phosphatase 58 (34-104) U/L Total Creatine Kinase 41 (10-223) U/L Troponin I 0.00 (<0.04) ng/mL C-Reactive Protein 2.48 (<8.01) mg/L B-Natriuretic Peptide (<=100) pg/mL Total Protein 7.5 (6.4-8.9) g/dL Albumin 4.3 (3.2-5.2) g/dL Globulin 3.2 (2-4) g/dL Albumin/Globulin Ratio 1.3 (1-3) TSH 5.41 (0.34-5.60) mcIU/mL Assess/Plan/Problems-Billing Assessment: Ms. Hackett is a 73 yo female with a PMH of afib s/p pacer, HTN, DM, Hypothyroid, GERD, anxiety who recently has had afib with rvr, recent discontinuation of Tikosyn and digoxin (1.5 months ago) as they were not effective in controlling her rate who presented with sob and worsening tachycardia x1 week admitted for afib with rvr. - Patient Problems (1) Atrial fibrillation with RVR Comment: - s/p pacer - patient has chronic uncontrolled afib; taken off Tikosyn and Digoxin 1.5 months ago. on admission Metoprolol was increased from 50 mg BID to 100 mg BID and given Digoxin - better rate control. Patient has much improvement overnight. Continues to be hypoxic. VQ Scan low probability. Chest xray showing bilateral pleural effusions with left basilar atelectaisis vs consolidatiion. low suspicion for pna supsect mild CHF due to rapid afib. Plan to give lasix 40 mg x 1 now. - continue Eliquis - pt has appointment with her Cardiolgist in [place] Dr. Galarza tomorrow for further work up and plan - Discussed with Cardiology Dr. King who recommends giving lasix and have patient f/u with purchase analyst tomorrow. (2) HTN (hypertension) Comment: - continue norvasc, metoprolol (this has increased from home dose), lisinopril (3) GERD (gastroesophageal reflux disease) Comment: - continue PPI (4) Diabetes Comment: - not on home medications. Continue lispro SS with lispro. - add on HgA1C (5) Hypothyroid Comment: - continue home dose synthroid (6) Anxiety Comment: - continue home dose xanax prn (7) Full code status (8) DVT prophylaxis Comment: eliquis Status and Disposition: OBV for afib with rvr. Patient could possibly go home later today if her hypoxia resolves which is thought to be [id number] to mild chf 2nd afib
[2019-01-06 15:20] VITALS: BP 131/77
[2019-01-06] MEDS ORDERED: Furosemide IV* 10 MG/ML VIAL (40 MG) IV ONE (15:40)
[2019-01-06] MEDS ORDERED: ALPRAZolam TAB* 0.25 MG PO PRN (15:45)
--- NOTE | 2019-01-06 17:07 | ECHO ---
*[facility]* [place] [address] Fax #: [phone] Transthoracic Echocardiogram Patient: Laury Hackett Height: 65 in / Paulina 165.1 cm : 1945 Weight: 162.7 lb / Study Date: 01/06/2019 73.9 kg Age: 73 BP: 131 / 77 Gender: F BMI/BSA: 27.1 kg/m^2 HR: 104 bpm / 1.81 m^2 *Research Agricultural Engineer: * Aubree Hall [facility] *Referring Physician: * Rema Page *Reading Physician: * Keyur King MD Indications: SOB. History: Atrial fibrillation. Risk factors: Hypertension. Diabetes mellitus. Dyslipidemia. Labs, prior tests, procedures, and surgery: Electrophysiology study with ablation. ICD system implantation. Conclusions Summary: 1. Left ventricle: Systolic function is at the lower limits of normal. The estimated ejection fraction is 45-50%. Wall motion is normal; there are no regional wall motion abnormalities. 2. Right ventricle: Systolic function is mildly reduced. Systolic pressure is moderately increased. 3. Mitral valve: There is mild to moderate regurgitation. 4. Aortic valve: There is no evidence of stenosis. There is trace regurgitation. 5. Tricuspid valve: There is severe regurgitation. 6. Pericardium, extracardiac: There is no significant pericardial effusion. 7. Study data: No prior study is available for comparison. Study data: Transthoracic echocardiogram. Procedure: Transthoracic echocardiography was performed. Image quality was good. Complete 2D, spectral Doppler, and color flow Doppler. Location: Bedside. Patient status: Inpatient. Patient room number: 433. No prior study is available for comparison. Rhythm: Paced rhythm. Findings Left ventricle: The cavity size is normal. Wall thickness is normal. Systolic function is at the lower limits of normal. The estimated ejection fraction is 45-50%. Wall motion is normal; there are no regional wall motion abnormalities. Left ventricular diastolic function parameters are indeterminate. Right ventricle: The cavity size is mildly dilated. Systolic function is mildly reduced. Systolic pressure is moderately increased. Ventricular septum: There is abnormal interventricular septal wall motion consistent with an RV pacemaker. Left atrium: The atrium is severely dilated. Right atrium: The atrium is severely dilated. Mitral valve: The annulus is calcified. The leaflets are mildly thickened. There is no evidence of stenosis. There is mild to moderate regurgitation. Aortic valve: The valve is trileaflet. The leaflets are mildly thickened. There is no evidence of stenosis. There is trace regurgitation. Tricuspid valve: The leaflets are normal thickness. There is no evidence of stenosis. There is severe regurgitation. Hepatic deysi flow reversal is present Pulmonic valve: The leaflets are normal thickness. There is no evidence of stenosis. There is trace regurgitation. Aorta: Ascending aorta: The ascending aorta is appears normal. Aortic arch: The aortic arch is appears normal. The aortic root is not dilated. Pericardium: There is no significant pericardial effusion. Pulmonary arteries: The main pulmonary artery is normal-sized. Systolic pressure is moderately to severely increased. Systemic veins: Inferior vena cava: The vessel is dilated. The respirophasic diameter changes are blunted (< 50%). Measurements Left ventricle Value Ref Aortic valve continued Value Ref HUGO, LAX 4.3 cm 3.8 - 5.2 Mean grad, S 3.0 mm Hg ----- ESD, LAX (H) 3.9 cm 2.2 - 3.5 Peak grad, S 4.0 mm Hg ----- FS, LAX (L) 8 % LVOT/AV, VTI ratio 0.62 ----- PW, ED, LAX 0.9 cm 0.6 - 0.9 FS (L) 8 % Mitral valve Value Ref PW, ED 0.9 cm 0.6 - 0.9 Peak E 0.91 m/sec ----- E', lat fredrick, TDI 11.1 cm/sec >=10.0 Peak A 0 m/sec - ---- E/e', lat rfedrick, 8 Decel time 150 ms ---- - TDI Peak grad, D 3.3 mm Hg ----- E', med fredrick, TDI 7.1 cm/sec >=7.0 Peak LV-LA grad S 59 mm Hg - ---- E/e', med fredrick, 13 MR alias velocity 0.39 m/sec ---- - TDI MR PISA radius 0.4 cm ----- E', avg, TDI 9.1 cm/sec Max MR v 3.84 m/sec ---- - E/e', avg, TDI 10 <=14 Regurg VTI 117.0 cm - ---- ERO, PISA 0.1 cm^2 ----- LVOT Value Ref MR vol, PISA 12 ml ----- Peak dong, S 0.64 m/sec VTI, S 11.0 cm Pulmonic valve Value Ref Mean grad, S 1 mm Hg Peak v, S 0.78 m/sec ----- Peak grad, S 2.0 mm Hg ----- Ventricular septum Value Ref IVS, ED 0.8 cm 0.6 - 0.9 Tricuspid valve Value Ref TR peak v (H) 2.9 m/sec <=2.8 Right ventricle Value Ref Peak RV-RA grad, S 34 mm Hg ----- HUGO, LAX 3.3 cm HUGO minor ax, A4C (H) 4.5 cm 1.9 - 3.5 Aortic root Value Ref mid Root diam 3.2 cm <4.0 Pressure, S 49 mm Hg Ascending aorta Value Ref Left atrium Value Ref AAo AP diam, S 3.3 cm ----- AP dim, ES (H) 4.20 cm 2.70 - 3.80 Aortic arch Value Ref ML dim, A4C 5.0 cm Arch diam 1.9 cm ----- SI dim, A4C 6.4 cm Vol/bsa, ES, 1-p (H) 51 ml/m^2 11 - 40 Decending aorta Value Ref A4C Hiram peak dong 0.37 m/sec ----- Vol/bsa, ES, A/L (H) 56 ml/m^2 16 - 34 Pulmonary artery Value Ref Right atrium Value Ref Pressure, S 47.0 mm Hg ----- SI dim, ES (H) 7.2 cm 3.4 - 5.3 ML dim, ES, A4C (H) 5.1 cm 2.6 - 4.4 Inferior vena cava Value Ref SI dim, ES, A4C (H) 7.2 cm 3.4 - 5.3 Diam 2.8 cm ----- Estimated RAP 15 mm Hg Aortic valve Value Ref Fredrick diam, ED 1.9 cm Peak v, S 0.99 m/sec VTI, S 17.8 cm Legend: (L) and (H) em values outside specified reference range. Prepared and electronically signed by Keyur King MD 01/06/2019 17:06
--- NOTE | 2019-01-06 23:19 | DS ---
CC: Dr. Amber Vernon * DISCHARGE SUMMARY: DATE OF ADMISSION: 01/05/19 DATE OF DISCHARGE: 01/06/19 PROVIDER: Radha Bowles NP. ATTENDING PHYSICIAN: Dr. Kaylah Aguiar * (report dictated by Radha Bowles NP). PRIMARY CARE PROVIDER: Dr. Amber Vernon. HOSPICE PATIENT CARE SECRETARY: Dr. Pandey [place], [place]. DISCHARGE DIAGNOSES: 1. Atrial fibrillation with rapid ventricular rate. 2. Hypoxia secondary to mild congestive heart failure secondary to atrial fibrillation with rapid ventricular rate. SECONDARY DIAGNOSES: 1. Hypertension. 2. Diabetes. 3. Hypothyroidism. 4. Anxiety. 5. Gastroesophageal reflux disease. 6. Hyperlipidemia. 7. Status post pacemaker. DISCHARGE MEDICATIONS: 1. Synthroid 88 mcg p.o. q.a.m. 2. Eliquis 5 mg p.o. b.i.d. 3. Norvasc 5 mg p.o. q.a.m. 4. Potassium chloride 10 mEq p.o. daily. 5. Omeprazole 20 mg p.o. q.a.m. 6. Multivitamin 1 tab p.o. daily. 7. Lisinopril 40 mg p.o. q.a.m. 8. Calcium carbonate 750 mg p.o. daily. 9. Xanax 0.5-1 mg p.o. q.6 hours p.r.n. anxiety. 9. Metoprolol succinate XL 100 mg p.o. b.i.d. Please note this is increased from 50 mg p.o. b.i.d. HISTORY OF PRESENT ILLNESS AND HOSPITAL COURSE: Please see history and physical by Anu Kim NP , for full admission details, but in summary, this is a 73-year-old female who presented to the emergency department last evening on 01/05/19 with complaint of tachycardia and shortness of breath. The patient reports that she has had increasing shortness of breath over the past 2 weeks with a dry cough; initially she thought it was related to her allergies; however, now she thinks it is secondary to her chronic atrial fibrillation in which she has had difficulty controlling her heart rate. The patient reports approximately 1.5 months ago, her physician stopped her digoxin and Tikosyn as they were not controlling her rate. After this, the patient reported that her heart rate started to increase intermittently, and over the past week, her heart rate has been from one-teens to 126. She reports increased fatigue, increased shortness of breath x1 week. She does have a pacemaker and has an appointment with her director of enrollment tomorrow in [place], [place], in which she was to be evaluated due to her uncontrolled atrial fibrillation and possibly have her pacemaker adjusted to control for better control. It is possible she may undergo an ablation, but she is unclear. In the emergency department, she received Lopressor 5 mg IV x3 and was given Lopressor 100 mg p.o. She was given 15 mg esmolol x2 for a total of 30 mg with no significant change in her heart rate. She then was given a dose of digoxin 0.5 mg. This morning, the patient's heart rate is better controlled between 87 and 115. Today, she reports that she feels much better and states that her shortness of breath had resolved. She was still noted to be slightly hypoxic on room air with exertion with an O2 sat of 88% to 90%. She was given 40 mg of IV Lasix. The patient has diuresed throughout the day and now is satting 96% on room air. This is also with exertion she is maintaining her O2 sats. Her chest x-ray on admission showed small bilateral pleural effusions with left basilar atelectasis versus consolidation. The patient denies any feeling that she has been ill with upper respiratory cold. She reported a dry cough, but no sputum production. No fevers or chills. The patient also denies lower extremity edema or orthopnea. I did side consult Dr. King, director of enrollment, to review the medications and the plan. He agrees to send the patient home on metoprolol succinate 100 mg p.o. b.i.d. and have the patient follow up with her director of enrollment appointment tomorrow. The patient is stable for discharge to home. 1. Follow up with director of enrollment, Dr. Pandey in [place], [place], tomorrow for further evaluation. 2. The patient was instructed to return to emergency department with any worsening or concerning symptoms. 3. Follow up with Dr. Amber Vernon within 1 week. CONDITION ON DISCHARGE: Stable. TIME SPENT: Approximately 60 minutes was spent on this discharge. RADHA BOWLES, HOME HEALTH OCCUPATIONAL THERAPIST [id number]/[facility] #: [id number] [facility]August
[2019-01-07] MEDS ORDERED: Levothyroxine TAB* 88 MCG TAB PO SCH (06:00)
== END 2019-01-06 18:51 | disposition home or self-care (01) ==
LOC: ED 09:03 → MEDTELE 17:23
PROVIDERS: ADMIT Internal Medicine; ATTEND Internal Medicine
DX: I48.2 Chronic atrial fibrillation (principal); R09.02 Hypoxemia; I50.9 Heart failure, unspecified; I10 Essential (primary) hypertension; E11.9 Type 2 diabetes mellitus without complications; E03.9 Hypothyroidism, unspecified; F41.9 Anxiety disorder, unspecified; K21.9 Gastro-esophageal reflux disease without esophagitis; E78.5 Hyperlipidemia, unspecified; Z95.0 Presence of cardiac pacemaker; Z79.01 Long term (current) use of anticoagulants; Z88.0 Allergy status to penicillin
CPT/HCPCS: 36415; 71046; 78582; 80048; 80053; 80162; 81003; 82550; 83036; 83605; 83735; 83880; 84443; 84484; 85025; 85379; 85610; 86140; 93005; 93306; 96365; 96375; 96376; 99285; A9270-GY; A9540; A9558; G0378; J1160; J1940; J3475; J3490